=== PATIENT | female | born 1985 | race Caucasian/White ===

== ENCOUNTER 2017-09-05 16:06 | Inpatient (IN) | payer BC ==
[2017-09-14] MEDS ORDERED: BUTORPHANOL 1 MG/ML 1 ML VIAL IV PRN (19:24)
[2017-09-14] MEDS ORDERED: DINOPROSTONE 10 MG INSERT.ER VAGINAL ONE (19:24)
[2017-09-14 19:39] VITALS: BMI 29.7
--- NOTE | 2017-09-14 20:21 | P.HPOB ---
History of Present Illness H&P Date: 09/14/17 Chief Complaint: 41-2/7 weeks, induction of labor The patient is a 32-year-old 1 para 0 admitted at 41-2/7 weeks as established by last menstrual period and confirmed by 9 week ultrasound. She is admitted for Cervidil cervical ripening to be followed by Pitocin induction if necessary. Her has been entirely uncomplicated. She is Rh- and received RhoGAM at 28 weeks. testing following her due date has been reassuring and amniotic fluid index has been normal. Group B strep status is negative. Obstetrical history: 1 para 0 with current statistics listed in history of present illness. EDC of 09/05/2017 was established by last menstrual period and confirmed by 9 week ultrasound. Laboratory workup done traits of blood type of O- with a negative antibody screen. Rubella status is immune. All other laboratory workup was within normal limits. One hour Glucola was normal and group B strep status is negative. Gynecologic history: Unremarkable with no history of any infections to include STDs. Review of Systems Review of systems is confined to history of present illness. Past Medical History Past Medical History: Cancer Additional Past Medical History / Comment(s): BIOPSY OF ABD LESION, MELANOMA. History of Any Multi-Drug Resistant Organisms: None Reported Past Surgical History: No Surgical Hx Reported Past Anesthesia/Blood Transfusion Reactions: Motion Sickness Past Psychological History: No Psychological Hx Reported Smoking Status: Never smoker Past Alcohol Use History: Occasional Past Drug Use History: None Reported - Past Family History Mother Family Medical History: Cancer, Hypertension Medications and Allergies Home Medications Medication Instructions Recorded Confirmed Type Iron 1 tab PO DAILY 09/11/17 09/11/17 History Pnv,Calcium 72/Iron/Folic Acid 1 tab PO DAILY 09/11/17 09/11/17 History [ Plus Tablet] Allergies Allergy/AdvReac Type Severity Reaction Status Date / Time amoxicillin Allergy Rash/Hives Verified 09/14/17 19:24 azithromycin Allergy Unknown Verified 09/14/17 19:24 Exam - Vital Signs Vital signs: Vital Signs Temp Pulse Resp BP Pulse Ox 09/14/17 19:24 96.1 F L 90 16 122/75 98 Intake and Output 09/14/17 09/14/17 09/14/17 06:59 14:59 22:59 Other: Weight 86.183 kg In general, this is a well-developed, well-nourished white female in no acute distress. Her heart has a regular rhythm and rate without murmur. Her lungs are clear to auscultation bilaterally in all lockhart. Her abdomen is gravid, nondistended, has normal active bowel sounds, is soft, nontender, and without any palpable masses aside from uterine fundus. Her extremities are without any cyanosis, clubbing, or edema and are nontender to palpation bilaterally. Digital cervical examination demonstrates her cervix to be fingertip dilated, 80 % effaced, the vertex in presentation at -1 station though the cervix is quite posterior. The Cervidil cervical ripening devices placed in the posterior fornix per protocol. Assessment and Plan (1) Post-dates Current Visit: Yes Status: Acute Code(s): O48.0 - POST-TERM SNOMED Code(s): 91796235 (2) Unfavorable cervix in term Current Visit: Yes Status: Acute Code(s): O34.40 - MATERNAL CARE FOR OTH ABNLT OF CERVIX, UNSP TRIMESTER SNOMED Code(s): 491972985 Plan: As noted above, testing has been reassuring. Given the degree of postdatism, we have opted to proceed with Cervidil cervical ripening and subsequent Pitocin induction should become necessary. Cervidil has been place. The risks and, occasions the procedure have been thoroughly discussed including the risk for uterine hyperstimulation and potential risk for delivery. She has understood all of these concerns and agreed to proceed. She may have intermittent monitoring overnight unless labor ensues. She is a good candidate for either IV or epidural analgesia, whichever she may choose. Close maternal and surveillance Ryan practice along with expectant management.
[2017-09-15] MEDS ORDERED: CARBOPROST TROMETHAMINE 250 MCG/ML 1 ML AMP IM PRN (03:18)
[2017-09-15] MEDS ORDERED: TERBUTALINE 1 MG/ML VIAL SQ PRN (03:18)
[2017-09-15] MEDS ORDERED: OXYTOCIN 10 UNIT/ML 1 ML VIAL IM PRN (03:18)
[2017-09-15] MEDS ORDERED: LIDOCAINE 1% (PF) 10 MG/ML (30 ML SDV) SQ PRN (03:18)
[2017-09-15] MEDS ORDERED: METHYLERGONOVINE 0.2 MG/ML 1 ML AMP IM PRN (03:18)
[2017-09-15] MEDS ORDERED: OXYTOCIN 20 UNITS/1000 ML NS 1,000 ML IV SCH ×2 (03:30→16:30)
[2017-09-15] MEDS: LACTATED RINGERS 1,000 ML IV SCH ×2 (05:35→08:46)
[2017-09-15 06:13] LABS: Basophils % (A) 0 %; Eosinophils # (A) 0.1 k/uL (0-0.7); Eosinophils % (A) 1 %; HCT 36.5 % (34.0-46.0); HGB 12.5 gm/dL (11.4-16.0); Lymphocytes # (A) 1.7 k/uL (1.0-4.8); Lymphocytes % (A) 16 %; MCHC 34.1 g/dL (31.0-37.0); MCV 90.7 fL (80.0-100.0); Mean Platelet Volume 8.2; Monocytes # (A) 0.4 k/uL (0-1.0); Monocytes % (A) 4 %; Neutrophils # (A) 8.2 k/uL (1.3-7.7); Neutrophils % (A) 78 %; Platelet Count 200 k/uL (150-450); RBC 4.02 m/uL (3.80-5.40); RDW 13.9 % (11.5-15.5); WBC 10.6 k/uL (3.8-10.6)
[2017-09-15] MEDS ORDERED: fentaNYL (PF) 50 MCG/ML 5 ML AMP ONE (08:40)
[2017-09-15] MEDS ORDERED: SODIUM CHLORIDE 0.9% 100 ML BAG ONE (08:40)
[2017-09-15] MEDS ORDERED: BUPIVACAINE (PF) 0.25% 30 ML VIAL ONE (08:40)
[2017-09-15] MEDS ORDERED: BUPIVACAINE (PF) 0.5% 12.5 ML, fentaNYL (PF) 200 MCG in SODIUM CHLORIDE 0.9% 83.5 ML EPIDURAL ONE (09:10)
[2017-09-15] MEDS ORDERED: HYDROcodone/APAP 5-325MG 1 EACH TAB PO PRN (16:22)
[2017-09-15] MEDS ORDERED: WITCH HAZEL 1 EACH MED..PAD TOPICAL PRN (16:22)
[2017-09-15] MEDS ORDERED: LANOLIN CREAM 5 GM TUBE TOPICAL PRN (16:22)
[2017-09-15] MEDS ORDERED: diphenhydrAMINE 50 MG/ML 1 ML VIAL IVP PRN ×2 (16:22)
[2017-09-15] MEDS ORDERED: diphenhydrAMINE 25 MG CAP PO PRN (16:22)
[2017-09-15] MEDS ORDERED: ZOLPIDEM 5 MG TAB PO PRN (16:22)
[2017-09-15] MEDS ORDERED: HYDROCORTISONE 2.5% RECTAL CREAM 30 GM TUBE RECTAL PRN (16:22)
[2017-09-15] MEDS ORDERED: diphenhydrAMINE 50 MG CAP PO PRN (16:22)
[2017-09-15] MEDS ORDERED: BENZOCAINE/MENTHOL SPRAY 1 GM/SPRAY AEROSOL TOPICAL PRN (16:22)
[2017-09-15] MEDS ORDERED: SIMETHICONE 80 MG CHEWABLE PO PRN (16:22)
--- NOTE | 2017-09-15 16:27 | P.PROBDLV ---
Vaginal Delivery Note - . Vaginal Delivery Note: The patient is a 32-year-old 1 para 0 admitted at 41-2/7 by good dating parameters perches admitted for Cervidil cervical ripening and subsequent Pitocin induction given a very unfavorable cervix at significant postdates. Her has been uncomplicated. She is Rh- and received RhoGAM at 28 weeks. Group B strep status is negative. testing since passing her due date has been reassuring as has amniotic fluid index. On labor and delivery , she had Cervidil placed in the posterior fornix last evening and remained relatively comfortable through the night. This was removed early this morning and Pitocin augmentation started. Approximately 0800, her cervix was noted to be 2 cm dilated and 80% effaced. Artificial rupture of membranes is carried out demonstrating clear fluid. She had an epidural catheter placed for analgesia shortly thereafter. She made average progress through the active phase of labor and progressed to complete and +2 station. She pushed over the course of approximately 50 minutes to a normal spontaneous vaginal delivery of a viable 7 lbs. 9 oz. baby girl with Apgars of 9 at 1 minute and 9 at 5 minutes delivered in the right occiput anterior position. cord blood was collected for evaluation for the necessity of RhoGAM. The placenta was delivered spontaneously, intact, and grossly normal with a grossly normal, centrally inserted three-vessel cord. There was a second-degree midline perineal laceration noted which was repaired in standard fashion using 3-0 chromic catgut without difficulty. Estimated blood loss for the case is approximately 200 mL. There were no complications. All sponge, instrument, and needle counts were correct. Both mother and infant are resting comfortably in recovery.
[2017-09-15] MEDS: SENNOSIDES-DOCUSATE SODIUM 1 EACH TAB PO SCH (18:56)
[2017-09-15] MEDS: IBUPROFEN 600 MG TAB PO PRN (18:57)
[2017-09-16] MEDS ORDERED: Rhogam IMMUNE GLOBULIN 1,500 UNIT/1 ML IM ONE (00:46)
[2017-09-16] MEDS: IBUPROFEN 600 MG TAB PO PRN ×3 (00:49→16:07)
--- NOTE | 2017-09-16 08:26 | P.PNOBGVD ---
Subjective - Subjective Patient reports: Reports appetite normal, Reports voiding normally, Reports pain well controlled, Reports ambulating normally : doing well Objective - Latest Vital Signs Latest vital signs: Vital Signs Temp Pulse Resp BP Pulse Ox 09/16/17 00:00 98.5 F 84 16 114/65 09/15/17 20:00 98.1 F 101 H 16 112/78 09/15/17 18:21 86 16 122/72 99 09/15/17 17:51 93 18 118/76 09/15/17 17:15 106 H 18 114/79 09/15/17 16:59 93 16 110/65 09/15/17 16:44 91 18 133/66 09/15/17 16:29 94 18 105/78 09/15/17 16:22 93 18 110/65 09/15/17 16:14 96.4 F L 93 17 126/77 97 Intake and Output 09/15/17 09/16/17 09/16/17 22:59 06:59 14:59 Intake Total 39.7 100 Balance 39.7 100 Intake: Intake, IV Titration 39.7 Amount Oxytocin 20 Units/1000 ml 39.7 Ns 1,000 ml @ 1 MILLIUNIT/MIN 3 mls/hr IV .Q24H [facility] Rx#:[id number] Oral 100 Other: Voiding Method Toilet # Voids 1 - Exam Extremities: Present: normal Abdomen: Present: normal appearance, soft Uterus: Present: normal, firm (The uterine fundus as tonic and nontender at the umbilicus.) Assessment and Plan (1) Post-dates Current Visit: Yes Status: Acute Code(s): O48.0 - POST-TERM SNOMED Code(s): 98830803 (2) Unfavorable cervix in term Current Visit: Yes Status: Acute Code(s): O34.40 - MATERNAL CARE FOR OTH ABNLT OF CERVIX, UNSP TRIMESTER SNOMED Code(s): 389051973 (3) Normal spontaneous vaginal delivery Current Visit: Yes Status: Acute Code(s): O80 - ENCOUNTER FOR FULL-TERM UNCOMPLICATED DELIVERY SNOMED Code(s): 30992934 Plan: Continue routine care. The patient has chosen remain in the hospital for ongoing assistance with nursing. I anticipate discharge home tomorrow.
[2017-09-16] MEDS: ACETAMINOPHEN TAB 325 MG TAB PO PRN (20:11)
[2017-09-16] MEDS: SENNOSIDES-DOCUSATE SODIUM 1 EACH TAB PO SCH ×2 (20:11)
[2017-09-17] MEDS: IBUPROFEN 600 MG TAB PO PRN ×2 (05:28→14:23)
[2017-09-17 07:12] VITALS: RESP 20
[2017-09-17] MEDS: SENNOSIDES-DOCUSATE SODIUM 1 EACH TAB PO SCH (08:00)
[2017-09-17] MEDS: ACETAMINOPHEN TAB 325 MG TAB PO PRN (09:18)
--- NOTE | 2017-09-17 10:53 | P.DS ---
Providers Date of admission: 09/14/17 19:18 Expected date of discharge: 09/17/17 Attending physician: Mayur Doss Primary care physician: Stated None - Discharge Diagnosis(es) (1) Post-dates Current Visit: Yes Status: Acute (2) Unfavorable cervix in term Current Visit: Yes Status: Acute (3) Normal spontaneous vaginal delivery Current Visit: Yes Status: Acute Hospital Course: The patient is a 32-year-old 1 para 0 admitted at 41-2/7 weeks for Cervidil cervical ripening followed by Pitocin induction if needed. Her was uncomplicated aside from being postdates and testing was reassuring since the time of her due date. She is Rh- and received RhoGAM at 28 weeks. Group B strep status was negative. On labor and delivery, she had Cervidil placed overnight and removed early the following morning having made some cervical change. She had Pitocin augmentation started and underwent artificial rupture of membranes. She ultimately had an epidural catheter placed and made good progress through the active phase of labor to complete. She pushed to a normal spontaneous vaginal delivery of a viable 7 lbs. 9 oz. baby girl with Apgars of 9 at 1 minute and 9 at 5 minutes. Her course was entirely unremarkable with vital signs remaining stable and her temperature was afebrile throughout. She was deemed stable for discharge by day #2 was discharged home to follow-up in the office in 6 weeks' time routinely. Discharge instructions included calling for any significantly increased bleeding or foul-smelling lochia, significantly increased fever abdominal pain, perineal complaints, breast complaints, or anything else that concerned her. She was additionally instructed to have nothing in the vagina for at least 6 weeks time to include intercourse. She understood her instructions and agrees to follow up as noted above. Discharge medications included continued vitamins as she has opted to breast-feed. She otherwise was to use [id number] analgesic pain medications as needed. Maternal blood type is O- and cord blood was sent for evaluation for the necessity of RhoGAM prior to discharge. Rubella status is immune. Procedures: #1. Cervidil cervical ripening #2. Pitocin augmentation #3. Artificial rupture of membranes #4. Epidural analgesia #5. Normal spontaneous vaginal delivery #6. Repair of perineal laceration Patient Condition at Discharge: Good Plan - Discharge Summary New Discharge Prescriptions: No Action Pnv,Calcium 72/Iron/Folic Acid [ Plus Tablet] 1 tab PO DAILY Iron 1 tab PO DAILY Discharge Medication List Iron 1 tab PO DAILY 09/11/17 [History] Pnv,Calcium 72/Iron/Folic Acid [ Plus Tablet] 1 tab PO DAILY 09/11/17 [ History] Follow up Appointment(s)/Referral(s): Mayur Doss MD [STAFF PHYSICIAN] - 6 Weeks Discharge Disposition: HOME SELF-CARE
[2017-09-17 20:05] VITALS: BP 109/67; PULSE 79; TEMP 98.6
== END 2017-09-17 19:10 | disposition home or self-care (01) | DRG 775 ==
LOC: 4FBP 09-14 19:18
PROVIDERS: ADMIT Obstetrics & Gynecology; ATTEND Obstetrics & Gynecology
PROC: 10907ZC Drainage of Amniotic Fluid, Therapeutic from Products of Conception, Via Natural or Artificial Opening (ICD-10-PCS; principal; 2017-09-14)
PROC: 00HU33Z Insertion of Infusion Device into Spinal Canal, Percutaneous Approach (ICD-10-PCS; principal; 2017-09-14)
PROC: 3E0R3NZ Introduction of Analgesics, Hypnotics, Sedatives into Spinal Canal, Percutaneous Approach (ICD-10-PCS; principal; 2017-09-14)
PROC: 0KQM0ZZ Repair Perineum Muscle, Open Approach (ICD-10-PCS; principal; 2017-09-14)
PROC: 3E0P7VZ Introduction of Hormone into Female Reproductive, Via Natural or Artificial Opening (ICD-10-PCS; principal; 2017-09-14)
PROC: 10E0XZZ Delivery of Products of Conception, External Approach (ICD-10-PCS; principal; 2017-09-14)
DX: O48.0 Post-term pregnancy (principal); O70.1 Second degree perineal laceration during delivery; O34.43 Maternal care for other abnormalities of cervix, third trimester; Z37.0 Single live birth; Z3A.41 41 weeks gestation of pregnancy
CPT/HCPCS: 85025; 85461; 88307

== ENCOUNTER 2017-09-11 10:58 | Outpatient (CLI) | payer BC ==
[2017-09-11 11:46] VITALS: BP 117/72; PULSE 105; RESP 16; TEMP 96.6
== END 2017-09-11 11:35 | disposition home or self-care (01) ==
LOC: FBPOP 10:58
PROVIDERS: ATTEND Obstetrics & Gynecology
DX: O26.93 Pregnancy related conditions, unspecified, third trimester (principal); Z3A.40 40 weeks gestation of pregnancy
CPT/HCPCS: 59025

== ENCOUNTER 2019-08-09 00:14 | Outpatient (CLI) | payer BC ==
[2019-08-09 02:56] VITALS: BP 123/76; PULSE 109; RESP 16; TEMP 96.8
--- NOTE | 2019-08-09 10:55 | P.MSEPDOC ---
Presenting Problems - Arrival Data Date of Arrival on Unit: 08/09/19 Time of Arrival on Unit: 00:14 Mode of Transport: Ambulatory - Complaint OB-Reason for Admission/Chief Complaint: Possible Onset of Labor Comment: pt c/o of contractions Medical History - Information : 2 Para: 1 Term: 1 : 0 Abortions: Spontaneous or Elective: 0 Number of Living Children: 1 - Gestational Age Gestational Age by ROSY (wks/days): 40 Weeks and 1 Days Review of Systems - Review of Systems Constitutional: No problems Breast: No problems ENT: No problems Cardiovascular: No problems Respiratory: No problems Gastrointestinal: No problems Genitourinary: No problems Musculoskeletal: No problems Neurological: No problems Skin: No problems Vital Signs - Temperature Temperature: 96.8 F Temperature Source: Temporal Artery Scan - Pulse Right Brachial Pulse Rate: 109 Pulse Assessment Method: Automatic Cuff - Respirations Respiratory Rate: 16 Oxygen Delivery Method: Room Air O2 Sat by Pulse Oximetry: 97 - Blood Pressure Right Arm Blood Pressure: 123/76 Blood Pressure Mean: 91 Blood Pressure Source: Automatic Cuff Medical Screen Scoring (Pre) - Cervical Exam Dilation: 1-3 cm = 1 Effacement: More than 50% = 2 Membranes: Intact - Uterine Contractions Frequency: > or = 36 weeks =2 Duration: > 40 seconds = 2 Intensity: N/A - Maternal Vital Signs Maternal Temperature: N/A Maternal Blood Pressure: N/A Signs of Preeclampsia: N/A Maternal Respirations: N/A - Maternal Trauma Maternal Trauma: N/A - Assessment - Baby A Baseline FHR: 135 Heart Rate - NICHD Category: Category I (Normal) = 0 NST: Reactive Position: N/A Station: N/A - Total Score - Baby A Total Score - Baby A: 7 - Total Score - Baby B Total Score - Baby B: 7 - Total Score - Baby C Total Score - Baby C: 7 - Level of Risk - Baby A Level of Risk - Baby A: Medium (6-9) - Level of Risk - Baby B Level of Risk - Baby B: Medium (6-9) - Level of Risk - Baby C Level of Risk - Baby C: Medium (6-9) Physician Notification (Pre) - Physician Notified Physician Notified Date: 08/09/19 Physician Notified Time: 01:41 New Order Received: Yes - Notification Comment Comment: d/c home and keep apt with Dr. Doss this monring at 9:45. Disposition - Disposition OB Disposition: Discharge to home, Written follow up instructions reviewed Discharge Date: 08/09/19 Discharge Time: 02:40 I agree with the RN Medical Screening Exam: Yes Risk & Benefit of care provided described in d/c instruction: Yes Diagnosis: FALSE LABOR AT OR AFTER 37 COMPLETED WEEKS OF GESTATION
== END 2019-08-09 02:40 | disposition home or self-care (01) ==
LOC: FBPOP 00:14
PROVIDERS: ATTEND Obstetrics & Gynecology Obstetrics
DX: O47.1 False labor at or after 37 completed weeks of gestation (principal); Z3A.40 40 weeks gestation of pregnancy
CPT/HCPCS: 59025; 99213

== ENCOUNTER 2019-08-09 07:36 | Inpatient (IN) | payer BC ==
[2019-08-09] MEDS: LACTATED RINGERS 1,000 ML IV SCH ×2 (08:00→08:48)
[2019-08-09] MEDS ORDERED: TERBUTALINE 1 MG/ML VIAL SQ PRN (08:09)
[2019-08-09] MEDS ORDERED: LIDOCAINE 0.5% (PF) 5 MG/ML (50 ML SDV) SQ PRN (08:09)
[2019-08-09] MEDS ORDERED: METHYLERGONOVINE 0.2 MG/ML 1 ML AMP IM PRN (08:09)
[2019-08-09] MEDS ORDERED: CARBOPROST TROMETHAMINE 250 MCG/ML 1 ML AMP IM PRN (08:09)
[2019-08-09] MEDS ORDERED: OXYTOCIN 10 UNIT/ML 1 ML VIAL IM PRN (08:09)
[2019-08-09 08:29] LABS: Basophils % (A) 0 %; Eosinophils # (A) 0.2 k/uL (0-0.7); Eosinophils % (A) 2 %; HGB 12.8 gm/dL (11.4-16.0); Lymphocytes # (A) 1.3 k/uL (1.0-4.8); Lymphocytes % (A) 9 %; MCH 31.2 pg (25.0-35.0); MCHC 34.5 g/dL (31.0-37.0); MCV 90.2 fL (80.0-100.0); Mean Platelet Volume 9.1; Monocytes # (A) 0.2 k/uL (0-1.0); Monocytes % (A) 2 %; Neutrophils # (A) 13.1 k/uL (1.3-7.7); Neutrophils % (A) 87 %; Platelet Count 181 k/uL (150-450); RDW 13.9 % (11.5-15.5)
[2019-08-09] MEDS ORDERED: ROPIVACAINE 100 MG, fentaNYL (PF) 200 MCG in SODIUM CHLORIDE 0.9% 76 ML EPIDURAL ONE (09:03)
[2019-08-09] MEDS ORDERED: BENZOCAINE/MENTHOL SPRAY 1 GM/SPRAY AEROSOL TOPICAL PRN (15:09)
[2019-08-09] MEDS ORDERED: HYDROcodone/APAP 5-325MG 1 EACH TAB PO PRN (15:09)
[2019-08-09] MEDS ORDERED: HYDROcodone/APAP 7.5-325MG 1 EACH TAB PO PRN (15:09)
[2019-08-09] MEDS ORDERED: diphenhydrAMINE 50 MG CAP PO PRN (15:09)
[2019-08-09] MEDS ORDERED: diphenhydrAMINE 25 MG CAP PO PRN (15:09)
[2019-08-09] MEDS ORDERED: HYDROCORTISONE 2.5% RECTAL CREAM 30 GM TUBE RECTAL PRN (15:09)
[2019-08-09] MEDS ORDERED: diphenhydrAMINE 50 MG/ML 1 ML VIAL IVP PRN ×2 (15:09)
[2019-08-09] MEDS ORDERED: SIMETHICONE 80 MG CHEWABLE PO PRN (15:09)
[2019-08-09] MEDS ORDERED: ZOLPIDEM 5 MG TAB PO PRN (15:09)
[2019-08-09] MEDS ORDERED: WITCH HAZEL 1 EACH MED..PAD TOPICAL PRN (15:09)
[2019-08-09] MEDS ORDERED: LANOLIN CREAM 5 GM TUBE TOPICAL PRN (15:09)
[2019-08-09] MEDS ORDERED: ACETAMINOPHEN TAB 325 MG TAB PO PRN (15:09)
[2019-08-09] MEDS ORDERED: OXYTOCIN 20 UNITS/1000 ML NS 1,000 ML IV SCH (15:15)
--- NOTE | 2019-08-09 15:15 | P.HPOB ---
History of Present Illness H&P Date: 08/09/19 Chief Complaint: 40 and one sevenths weeks, early active labor The patient is a 34-year-old 2 para 1001 admitted at 40 and one sevenths weeks as established by last menstrual period and confirmed by 10 week ultrasound. She is admitted in early active labor having made cervical change for approximately 2-3 cm and earlier triage visit to 4-5 cm upon presentation. Upon admission, all signs are reassuring with a category 1 heart rate tracing and regular contractions. Her has been uncomplicated though she does fall into the category of advanced maternal age and declined any trisomy testing. Group B strep status is negative. Obstetrical history: 2 para 1001 with 1 term vaginal delivery without complications. Current statistics are listed in history present illness. EDC of 08/08/2019 was established by last menstrual period and confirmed by a 10 week ultrasound. Laboratory workup demonstrated a blood type of O- with a negative antibody screen. Rubella status is immune. The remainder of the laboratory workup was within normal limits. Second trimester Glucola was initially elevated but followed by a normal three-hour glucose tolerance test. Group B strep status is negative. Gynecologic history: Unremarkable with no history of any infections to include STDs. Review of Systems Review of systems is confined to history of present illness. Past Medical History Past Medical History: Cancer Additional Past Medical History / Comment(s): BIOPSY OF ABD LESION, MELANOMA. History of Any Multi-Drug Resistant Organisms: None Reported Past Surgical History: No Surgical Hx Reported Past Anesthesia/Blood Transfusion Reactions: Motion Sickness Past Psychological History: No Psychological Hx Reported Smoking Status: Never smoker Past Alcohol Use History: Occasional Additional Past Alcohol Use History / Comment(s): no use during Past Drug Use History: None Reported - Past Family History Mother Family Medical History: Cancer, Hypertension Medications and Allergies Home Medications Medication Instructions Recorded Confirmed Type Iron 1 tab PO DAILY 09/11/17 08/09/19 History Pnv,Calcium 72/Iron/Folic Acid 1 tab PO DAILY 09/11/17 08/09/19 History [ Plus Tablet] Allergies Allergy/AdvReac Type Severity Reaction Status Date / Time amoxicillin Allergy Rash/Hives Verified 08/09/19 07:51 azithromycin Allergy Unknown Verified 08/09/19 07:51 Exam Vital Signs Temp Pulse Resp BP Pulse Ox 08/09/19 08:20 96.3 F L 82 18 116/69 96 Intake and Output 08/09/19 08/09/19 08/09/19 06:59 14:59 22:59 Output Total 200 Balance -200 Output: Urine 200 Other: Weight 86.183 kg In general, this is a well-developed, well-nourished white female in no acute distress. Her heart has a regular rhythm and rate without murmur. Her lungs are clear to auscultation bilaterally in all lockhart. Her abdomen is gravid, nondistended, has normal active bowel sounds, soft, nontender, and without any palpable masses aside from uterine fundus. Her extremities are without any cyanosis, clubbing, or significant edema bilaterally. They're also nontender bilaterally. Digital cervical examination upon admission demonstrated her cervix to be 4-5 cm dilated, 70% effaced, the vertex in presentation at -1 station. Results Result Diagrams: 08/09/19 08:15 Abnormal Lab Results - Last 24 Hours (Table) 08/09/19 Range/Units 08:15 WBC 15.0 H (3.8-10.6) k/uL Neutrophils # 13.1 H (1.3-7.7) k/uL Assessment and Plan (1) Active labor at term Current Visit: Yes Status: Acute Code(s): SMH6823 - SNOMED Code(s): 28574946 Plan: The patient is admitted for active management of labor. She has requested and will have an epidural catheter placed shortly after admission. She will continue to have close maternal and surveillance and expectant management will be practiced.
--- NOTE | 2019-08-09 15:17 | P.PROBDLV ---
Vaginal Delivery Note - . Vaginal Delivery Note: The patient is a 34-year-old 2 para 1001 admitted at 40 and one sevenths weeks by good dating parameters. She is admitted in early active labor with all signs reassuring. Her has been uncomplicated though she did fall into the category of advanced maternal age and declined trisomy testing. The remainder of her was uncomplicated. On labor and delivery, she made slow but steady progress through the active phase of labor after an epidural catheter was placed for analgesia shortly after admission. She ultimately had artificial rupture of membranes performed demonstrating clear fluid. She then progressed over the next 1-2 hours to complete. She then pushed for approximately 25 minutes to a normal spontaneous vaginal delivery of a viable 8 lbs. 8 oz. baby girl with Apgars of 9 at 1 minute and 9 at 5 minutes delivered in the left occiput anterior position. There was a loose nuchal cord 1 which was reduced following delivery of the . A second-degree midline perineal laceration was noted over the site of a previous laceration and was repaired in standard fashion using 3-0 chromic catgut without difficulty. Estimated blood loss for the case is approximately 300 mL. There were no complications. All sponge, instrument, and needle counts were correct. Both mother and infant are resting comfortably in recovery.
[2019-08-09] MEDS: IBUPROFEN 600 MG TAB PO PRN (16:10)
[2019-08-09] MEDS ORDERED: Rhogam IMMUNE GLOBULIN 1,500 UNIT/1 ML IM ONE (19:47)
[2019-08-09] MEDS: SENNOSIDES-DOCUSATE SODIUM 1 EACH TAB PO SCH (20:46)
[2019-08-10] MEDS: IBUPROFEN 600 MG TAB PO PRN (04:24)
[2019-08-10 08:11] VITALS: RESP 16
[2019-08-10] MEDS: SENNOSIDES-DOCUSATE SODIUM 1 EACH TAB PO SCH (08:28)
--- NOTE | 2019-08-10 12:51 | P.DS ---
Providers Date of admission: 08/09/19 07:49 Expected date of discharge: 08/10/19 Attending physician: Mayur Doss Primary care physician: Stated None - Discharge Diagnosis(es) (1) Active labor at term Current Visit: Yes Status: Acute (2) Normal spontaneous vaginal delivery Current Visit: Yes Status: Acute Hospital Course: The patient is a 34-year-old 2 para 1001 admitted at 40 and one sevenths weeks by good dating parameters. She is admitted in early active labor with all signs reassuring. Her has been uncomplicated. She does fall into the category of advanced maternal age and declined any trisomy testing. Group B strep status is negative. On labor and delivery, she had an epidural catheter placed for analgesia and underwent artificial rupture of membranes. She then progressed to complete where after she pushed to a normal spontaneous vaginal delivery of a viable 8 lbs. 8 oz. baby girl with Apgars of 9 at 1 minute and 9 at 5 minutes. Her course was entirely unremarkable with vital signs remaining stable and her temperature was afebrile throughout. She was deemed stable for discharge on day #1 and was discharged home to follow-up in the office in 6 weeks' time routinely. Discharge instructions included calling for any significantly increased bleeding or foul-smelling lochia, significantly increased fever abdominal pain, perineal complaints, breast complaints, or anything else that concerned her. She was additionally instructed to have nothing in the vagina for at least 6 weeks time to include intercourse. She understood her instructions and agrees to follow up as noted above. Discharge medications included continued vitamins as she has opted to breast-feed. She is otherwise to use [id number] analgesic pain medications as needed. Maternal blood type is O- and cord blood was sent for evaluation for the necessity of RhoGAM prior to discharge. Rubella status is immune. Procedures: #1. Epidural analgesia #2. Artificial rupture of membranes #3. Normal spontaneous vaginal delivery #4. Repair of perineal laceration Patient Condition at Discharge: Good Plan - Discharge Summary New Discharge Prescriptions: No Action Pnv,Calcium 72/Iron/Folic Acid [ Plus Tablet] 1 tab PO DAILY Iron 1 tab PO DAILY Discharge Medication List Iron 1 tab PO DAILY 09/11/17 [History] Pnv,Calcium 72/Iron/Folic Acid [ Plus Tablet] 1 tab PO DAILY 05/26/18 [History] Follow up Appointment(s)/Referral(s): Mayur Doss MD [STAFF PHYSICIAN] - 6 Weeks Discharge Disposition: HOME SELF-CARE
[2019-08-10 16:50] VITALS: BP 102/62; PULSE 72; TEMP 98
== END 2019-08-10 16:30 | disposition home or self-care (01) | DRG 807 ==
LOC: FBPOP 07:36 → 4FBP 07:49
PROVIDERS: ADMIT Obstetrics & Gynecology; ATTEND Obstetrics & Gynecology
PROC: 10E0XZZ Delivery of Products of Conception, External Approach (ICD-10-PCS; principal; 2019-08-09)
PROC: 00HU33Z Insertion of Infusion Device into Spinal Canal, Percutaneous Approach (ICD-10-PCS; principal; 2019-08-09)
PROC: 3E0R3BZ Introduction of Anesthetic Agent into Spinal Canal, Percutaneous Approach (ICD-10-PCS; principal; 2019-08-09)
PROC: 0KQM0ZZ Repair Perineum Muscle, Open Approach (ICD-10-PCS; principal; 2019-08-09)
PROC: 3E0234Z Introduction of Serum, Toxoid and Vaccine into Muscle, Percutaneous Approach (ICD-10-PCS; principal; 2019-08-09)
DX: O69.81X0 Labor and delivery complicated by cord around neck, without compression, not applicable or unspecified (principal); Z37.0 Single live birth; O70.1 Second degree perineal laceration during delivery; Z3A.40 40 weeks gestation of pregnancy; O26.893 Other specified pregnancy related conditions, third trimester; Z67.41 Type O blood, Rh negative; Z79.899 Other long term (current) drug therapy; Z85.820 Personal history of malignant melanoma of skin; Z98.890 Other specified postprocedural states; Z88.1 Allergy status to other antibiotic agents; Z88.0 Allergy status to penicillin; Z82.49 Family history of ischemic heart disease and other diseases of the circulatory system; Z80.3 Family history of malignant neoplasm of breast; Z83.3 Family history of diabetes mellitus
CPT/HCPCS: 85025; 85461; 86850; 86900; 86901

== ENCOUNTER → 2022-03-13 | Outpatient (CLI) | payer BC ==
--- NOTE | 2022-03-16 16:49 | MM ---
Reason for Exam: Screening (asymptomatic). Baseline mammogram. Patient History: Menarche at age 11. First Full-Term at age 32. Late child-bearing (after 30). Premenopausal. Patient has history of breast feeding. Maternal grandmother had breast cancer at or over age 50. Paternal grandmother had breast cancer at or over age 50. Last menstrual period: 03/13/2022 Risk Values: Joy 5 year model risk: 0.6%. NCI Lifetime model risk: 13.7%. Prior Study Comparison: Patient's first Mammogram. Tissue Density: The breast tissue is heterogeneously dense. This may lower the sensitivity of mammography. Findings: Analyzed By CAD. Findings appears symmetrical. No suspicious groups of microcalcifications, spiculated or lobular masses, architectural distortion or other secondary signs of malignancy are mammographically apparent. Overall Assessment: Benign, BI-RAD 2 Management: Screening Mammogram of both breasts in 1 year. A negative mammogram report should not preclude additional follow up of suspicious palpable abnormalities. Patient should continue monthly self breast exam. A clinical breast exam by your physician is recommended on an annual basis and results should be correlated with mammographic findings. Electronically signed and approved by: Marcos John D.O. Radiologis
== END | disposition home or self-care (01) ==
LOC: RADMAMWWP 10:55
PROVIDERS: ATTEND Obstetrics & Gynecology
DX: Z12.31 Encounter for screening mammogram for malignant neoplasm of breast (principal); Z80.3 Family history of malignant neoplasm of breast
CPT/HCPCS: 77063; 77067

== ENCOUNTER → 2024-11-02 | Outpatient (CLI) | payer BC ==
--- NOTE | 2024-11-02 08:43 | MM ---
Reason for Exam: Screening (asymptomatic). Last mammogram was performed 2 year(s) and 8 month(s) ago. Patient History: Menarche at age 11. First Full-Term at age 32. Late child-bearing (after 30). Premenopausal. Patient has history of breast feeding. Maternal grandmother had breast cancer at or over age 50. Paternal grandmother had breast cancer at or over age 50. Risk Values: Joy 5 year model risk: 0.8%. NCI Lifetime model risk: 13.5%. Prior Study Comparison: 03/13/2022 Bilateral MG 3D screening mammo w/cad, [facility]. Tissue Density: The breasts are extremely dense, which lowers the sensitivity of mammography. Findings: Analyzed By CAD. There is no suspicious group of microcalcifications or new suspicious mass in either breast. Overall Assessment: Benign, BI-RAD 2 Management: Screening Mammogram of both breasts in 1 year. . Patient should continue monthly self-breast exams. A clinical breast exam by your physician is recommended on an annual basis. This exam should not preclude additional follow-up of suspicious palpable abnormalities. Note on Joy scores and lifetime risk: 1. A Joy score greater than 3% is considered moderate risk. If this is the case, consider specialist referral to assess eligibility for a risk reducing agent. 2. If overall lifetime risk for the development of breast cancer is 20% or higher, the patient may qualify for future screening with alternating mammogram and breast MRI. [facility], , 11/02/2024 8:41 AM. Electronically signed and approved by: Ariel White M.D. Radiologis
== END | disposition home or self-care (01) ==
LOC: RADMAMWWP 07:10
PROVIDERS: ATTEND Obstetrics & Gynecology
DX: Z12.31 Encounter for screening mammogram for malignant neoplasm of breast (principal); R92.343 Mammographic extreme density, bilateral breasts; Z80.3 Family history of malignant neoplasm of breast
CPT/HCPCS: 77063; 77067